=== PATIENT | male | born 1995 | race Caucasian/White ===

== ENCOUNTER 2019-06-27 21:44 | Emergency (ER) | payer BC ==
[~2019-06-27] VITALS: Ht 195.6 cm; Wt 92.1 kg
== END 2019-06-27 22:43 | disposition home or self-care (01) ==
LOC: ER 21:44
DX: S61.411A Laceration without foreign body of right hand, initial encounter (principal); W22.8XXA Striking against or struck by other objects, initial encounter
CPT/HCPCS: 12001; 99282-25